=== PATIENT | male | born 1980 | race Hispanic/Latino ===

== ENCOUNTER 2021-06-16 21:46 | Emergency (ER) | payer OTHER, SELFPAY ==
[2021-06-16] MEDS ORDERED: Fentanyl 100 MCG/2 ML VIAL ONE (21:52)
== END 2021-06-16 23:10 | disposition home or self-care (01) ==
LOC: ERS 21:46
DX: S06.9X9A Unspecified intracranial injury with loss of consciousness of unspecified duration, initial encounter (principal); S01.81XA Laceration without foreign body of other part of head, initial encounter; S27.321A Contusion of lung, unilateral, initial encounter; N28.9 Disorder of kidney and ureter, unspecified; F17.210 Nicotine dependence, cigarettes, uncomplicated; V44.5XXA Car driver injured in collision with heavy transport vehicle or bus in traffic accident, initial encounter
CPT/HCPCS: 70450; 71045; 71260; 72125; 72170; 74177; 96374; G0390; J3010